=== PATIENT | female | born 1980 | race African-American/Black ===

== ENCOUNTER 2020-05-19 04:59 | Emergency (ER) | payer MEDICAID ==
[~2020-05-19] VITALS: Ht 175.3 cm; Wt 94.0 kg
[2020-05-19 06:22] VITALS: BP 125/80
== END 2020-05-19 06:22 | disposition home or self-care (01) ==
LOC: ER 04:59
DX: J02.0 Streptococcal pharyngitis (principal); F12.10 Cannabis abuse, uncomplicated
CPT/HCPCS: 99281; 99283